=== PATIENT | male | born 1995 | race Two or more races ===

== ENCOUNTER → 2022-04-07 | Emergency (ER) | payer SELFPAY ==
[~2022-04-07] VITALS: Ht 180.3 cm; Wt 58.5 kg
[2022-04-07 17:08] VITALS: BP 110/68
--- NOTE | 2022-04-07 17:34 | NUR ---
ALETHA ROMANO FOR CONSULT
== END | disposition home or self-care (01) ==
LOC: ER 17:12 → EDBD 17:12
DX: M79.672 Pain in left foot (principal); M79.671 Pain in right foot; Z88.8 Allergy status to other drugs, medicaments and biological substances